=== PATIENT | female | born 1985 ===

== ENCOUNTER 2021-04-23 13:41 | Outpatient (REF) | payer BC, SELFPAY ==
--- NOTE | ~2021-04-23 | XR_ITS ---
EXAMINATION: XR ANKLE, RIGHT XR FOOT, RIGHT CLINICAL INFORMATION: M25.571 - Pain in right ankle and joints of right foot COMPARISON: None TECHNIQUE: 2 views right ankle and 2 views right ordered or obtained. A lateral view of the combined ankle and foot is also included for a total of 5 views. FINDINGS: There is no fracture or dislocation. The ankle mortise is symmetric. The malleoli are intact. There is mild soft tissue swelling overlying the lateral ankle just distal to the malleolus. Foot no fracture or dislocation. The retrocalcaneal recess. The talar dome appears normal. The subtalar joint is unremarkable. There is no focal joint narrowing or erosive change. There is bone union at the first MTP with mild hallux valgus. XR/XR foot RT min 3V IMPRESSION: 1. No fracture or dislocation ankle or foot. 2. First MTP bunion and hallux valgus.
--- NOTE | ~2021-04-23 | XR_ITS ---
EXAMINATION: XR ANKLE, RIGHT XR FOOT, RIGHT CLINICAL INFORMATION: M25.571 - Pain in right ankle and joints of right foot COMPARISON: None TECHNIQUE: 2 views right ankle and 2 views right ordered or obtained. A lateral view of the combined ankle and foot is also included for a total of 5 views. FINDINGS: There is no fracture or dislocation. The ankle mortise is symmetric. The malleoli are intact. There is mild soft tissue swelling overlying the lateral ankle just distal to the malleolus. Foot no fracture or dislocation. The retrocalcaneal recess. The talar dome appears normal. The subtalar joint is unremarkable. There is no focal joint narrowing or erosive change. There is bone union at the first MTP with mild hallux valgus. XR/XR ankle RT min 3V IMPRESSION: 1. No fracture or dislocation ankle or foot. 2. First MTP bunion and hallux valgus.
== END 2021-04-23 13:42 | disposition home or self-care (01) ==
LOC: HO.HMGCX 13:41
PROVIDERS: PCP Internal Medicine; Visit Provider Hospitalist
DX: M25.571 Pain in right ankle and joints of right foot (principal)
CPT/HCPCS: 73610; 73630

== ENCOUNTER 2022-07-09 17:58 | Outpatient (REF) | payer BC, SELFPAY ==
[2022-07-09 18:46] LABS: Influenza A PCR NEGATIVE (Negative); Influenza B PCR NEGATIVE (Negative); Resp Syncy Virus RNA Qual PCR POSITIVE (Negative); SARS COV2 PCR INHOUSE NEGATIVE (Negative)
== END 2022-07-09 17:59 | disposition home or self-care (01) ==
LOC: HO.LNP 17:58
PROVIDERS: Visit Provider Nurse Practitioner Family
DX: Z20.822 Contact with and (suspected) exposure to COVID-19 (principal); J06.9 Acute upper respiratory infection, unspecified
CPT/HCPCS: 0241U

== ENCOUNTER 2022-08-20 09:29 | Outpatient (REF) | payer BC, SELFPAY ==
[2022-08-20 14:47] LABS: Influenza A PCR NEGATIVE (Negative); Influenza B PCR NEGATIVE (Negative); Resp Syncy Virus RNA Qual PCR NEGATIVE (Negative); SARS COV2 PCR INHOUSE NEGATIVE (Negative)
== END 2022-08-20 09:30 | disposition home or self-care (01) ==
LOC: HO.LAB 09:29
PROVIDERS: Visit Provider Nurse Practitioner Family
DX: Z20.822 Contact with and (suspected) exposure to COVID-19 (principal); J06.9 Acute upper respiratory infection, unspecified
CPT/HCPCS: 0241U

== ENCOUNTER 2023-02-21 14:21 | Outpatient (REF) | payer BC, SELFPAY ==
[2023-02-22 05:11] LABS: CT PCR NOT DETECTED (Not Detect.); NG PCR NOT DETECTED (Not Detect.)
[2023-02-22 08:55] LABS: BV Int Neg Control Negative (Negative); BV Int Pos Control Positive (Positive)
[2023-02-24 00:03] LABS: HPV mRNA E6/E7 rflx Not Detected (Not Detected)
== END 2023-02-21 14:22 | disposition home or self-care (01) ==
LOC: HO.LNP 14:21
PROVIDERS: PCP Internal Medicine; Visit Provider Advanced Practice Midwife
DX: Z01.419 Encounter for gynecological examination (general) (routine) without abnormal findings (principal); Z11.51 Encounter for screening for human papillomavirus (HPV); R21 Rash and other nonspecific skin eruption; Z20.2 Contact with and (suspected) exposure to infections with a predominantly sexual mode of transmission
CPT/HCPCS: 0353U; 87480; 87510; 87624; 87660; 88142

== ENCOUNTER 2023-03-25 14:23 | Outpatient (REF) | payer BC, SELFPAY ==
[2023-03-25 14:41] LABS: MANUAL DIFF FLAG NO
[2023-03-25 17:34] LABS: Basophils Percent Auto 0.7 % (0-2); Eosinophils Absolute Auto 0.3 X10*3/uL (0.0-0.4); Eosinophils Percent Auto 4.7 % (0-4); Hematocrit 34.5 % (37.0-47.0); Hemoglobin 10.9 g/dl (12.0-16.0); Imm Gran Abs Auto 0.02 X10*3/uL (0.00-0.03); Imm Gran Pct Auto 0.3 % (0.0-0.4); Lymphocytes Absolute Auto 1.8 X10*3/uL (1.2-4.9); Lymphocytes Percent Auto 29.7 % (20-40); Mean Corpuscular HGB Conc 31.6 g/dl (31.0-35.0); Mean Corpuscular Hemoglobin 27.5 pg (27.0-33.0); Mean Corpuscular Volume 87.1 fL (80.0-98.0); Monocytes Absolute Auto 0.4 X10*3/uL (0.1-1.2); Monocytes Percent Auto 6.1 % (2-11); Neutrophils Absolute Auto 3.5 x10*3/uL (2.0-8.3); Neutrophils Percent Auto 58.5 % (45-73); Platelet Count 297 X10*3/uL (160-400); Red Blood Count 3.96 X10*6/uL (4.20-5.50); Red Cell Distribution Width 13.9 % (11.0-16.0); Retic HGB Equivalent 30.4 pg (30.0-35.0); Reticulocytes Absolute 0.041 X10*6/uL (0.026-0.095)
[2023-03-25 18:15] LABS: Alanine Aminotransferase 8 U/L (0-31); Albumin Level 4.1 g/dL (3.5-5.0); Alkaline Phosphatase 75 U/L (39-117); Anion Gap 14 (12-20); Aspartate Amino Transferase 12 U/L (5-31); Bilirubin Total 0.4 mg/dL (0.0-1.0); Blood Urea Nitrogen 8 mg/dL (9-16); Calcium 9.4 mg/dL (8.4-10.2); Carbon Dioxide 23 mmol/L (22-29); Chloride 106 mmol/L (96-108); Cholesterol 160 mg/dL; Estimated Glomerular Filt Rate > 60; Glucose Random 68 mg/dL (60-115); HDL Cholesterol 50 mg/dL; Iron 91 mcg/dL (30-160); LDL Cholesterol Calculated 100 mg/dl; Percent Iron Saturation 23 % (15-50); Potassium 3.9 mmol/L (3.3-5.1); Sodium 139 mmol/L (135-145); Total Iron Binding Capacity 391 mcg/dL (228-428); Total Protein 7.4 g/dL (6.5-8.0); Triglycerides 50 mg/dL; Unsaturated Iron Binding 300 ug/dL
[2023-03-25 18:34] LABS: Ferritin 9 ng/mL (10-122); Free T4 (Free Thyroxine) 0.89 ng/dL (0.71-1.85); Thyroid Stimulating Hormone 0.38 uIU/mL (0.32-4.0); Vitamin D 25-OH Total 37.1 ng/mL (>30)
== END 2023-03-25 14:24 | disposition home or self-care (01) ==
LOC: HO.LAB 14:23
PROVIDERS: PCP Internal Medicine; Visit Provider Internal Medicine
DX: K21.9 Gastro-esophageal reflux disease without esophagitis (principal); D64.9 Anemia, unspecified; E78.00 Pure hypercholesterolemia, unspecified; E55.9 Vitamin D deficiency, unspecified
CPT/HCPCS: 36415; 80053; 80061; 82306; 82607; 82728; 82746; 83540; 84439; 84443; 85025; 85045

== ENCOUNTER 2023-03-28 12:20 | Outpatient (AMB) | payer BC, SELFPAY ==
[2023-03-28 12:23] VITALS: BP 118/70; PULSE 80; O2SAT 98; BMI 30.8
--- NOTE | 2023-03-28 12:23 | MHC.PC.OV ---
Vital Signs 03/28/23 12:23 Height 5 ft 5 in Weight 185 lb BMI 30.8 BP 118/70 Blood Pressure Location Lt brachial Position Sitting Pulse 80 Pulse Source Pulse Oximeter Pulse Oximetry (%) 98 Oxygen Delivery Method Room Air Intake Visit Reasons: Annual Exam Allergies propranolol Allergy (Unknown, Verified 03/28/23 12:24) Unknown topiramate [Topamax] Allergy (Unknown, Verified 03/28/23 12:24) tingling sensation Medication List - Last Reconciled 03/28/23 by Marcial Carr MD albuterol sulfate 90 mcg/actuation 2 puffs PO QID PRN albuterol sulfate 2.5 mg (3 mL) inhalation QID PRN ascorbic acid (vitamin C) 500 mg PO .QD 90 days cetirizine (Zyrtec) 10 mg PO DAILY PRN cholecalciferol (vitamin D3) 50 mcg PO DAILY 90 days clotrimazole-betamethasone 1-0.05 % 1 appl topical BID 2 weeks doxepin 50 mg PO BEDTIME ferrous sulfate (Feosol) 325 mg PO DAILY fluoxetine 10 mg PO DAILY 90 days fluticasone propionate 50 mcg/actuation 2 sprays intranasal DAILY gabapentin 300 mg PO BEDTIME Tobacco use date assessed: 11/26/22 Dental Screening Dental Screen Date: 03/28/23 Did you have a dental visit in the last 12 months?: Yes Did you have a dental problem in the last 6 months where you did not have access to dental care?: No Was dental information given to patient?: Patient has dentist HPI Annual Exam HPI Details 38-year-old obese female with tension headache, generalized anxiety disorder GERD and asthma last seen in November 2022. Patient gets blood work from [facility] reference lab cholesterol is good thyroid is normal low vitamin-D anemia last blood work of December 2022 patient also sees gynecology February 2023 blood work recently done showing anemia at 10.9. occ lightheadenss,, dry cough, PFSH Medical History (Updated 03/28/23 @ 12:36 by Marcial Carr MD) Allergic rhinitis Anemia Asthma Cervical cancer screening Generalized anxiety disorder GERD (gastroesophageal reflux disease) Hyperthyroidism Hyperthyroidism Insomnia Iron deficiency anemia Migraine Nasal polyps Right carpal tunnel syndrome Well woman exam with routine gynecological exam Surgical History Hx of wisdom tooth extraction Family History Father Asthma Diabetes Mother Asthma Bipolar disorder Brother In good health Sister Down syndrome Other Substance use disorder Social History (Updated 03/28/23 @ 12:41 by Marcial Carr MD) Housing: Apartment Alcohol intake: never Patient Tobacco Use Status: Never used Tobacco Tobacco use type: Cigarette e-Cigarette/Vaping Use: Never Used Second Hand Smoke Exposure: No service: No Current occupational status: employed Cognitive needs: No Hearing needs: No Vision needs: No Female Reproductive History Menstrual Age of Menarche: 16 Questionnaire PHQ-9 Over the last 2 weeks, how often have you been bothered by any of the following problems? 1. Little interest or pleasure in doing things: not at all 2. Feeling down, depressed, or hopeless: not at all 3. Trouble falling or staying asleep, or sleeping too much: not at all 4. Feeling tired or having little energy: not at all 5. Poor appetite or overeating: not at all 6. Feeling bad about yourself - or that you are a failure or have let yourself or your family down: not at all 7. Trouble concentrating on things, such as reading the newspaper or watching television: not at all 8. Moving or speaking so slowly that other people could have noticed. Or the opposite - being so fidgety or restless that you have been moving around a lot more than usual: not at all 9. Thoughts that you would be better off or of hurting yourself in some way: not at all Total score: 0 Depression Screening Interpretation: Negative Source: Developed by Drs. Leo Maldonado, Cintia Wooten, Edilberto Araya and colleagues, with an educational gina from [employer]. Thrive Questionnaire Date Thrive assessed: 03/28/23 I am a: Patient What is your living situation today?: I have a steady place to live Within the past 12 months, did the food you bought not last and you didn't have the money to get more?: Never true Within the past 12 months, did you worry whether your food would run out before you got money to buy more?: Never true Do you have trouble paying for medicines?: No Do you have trouble getting transportation to medical appointments?: No Do you have trouble paying your heating and electricity bill?: No Do you have trouble taking care of your child, family member or friend?: No Do you have trouble with day-to-day activities such as bathing, preparing meals, shopping, managing finances, etc.?: No Are you currently unemployed and looking for a job?: No Are you interested in more education?: No Currently or been in a relationship where the following occur: no concerns reported AUDIT C Alcohol Use Questionnaire (AUDIT-C) 1. How often do you have a drink containing alcohol?: 2-4 times a month 2. How many drinks containing alcohol do you have on a typical day when you are drinking?: 1 or 2 3. How often do you have six or more drinks on one occasion?: Never Total Score: 2 SARA-7 AMB Questionnaire SARA-7 Date SARA - 7 assessed: 03/28/23 Feeling nervous, anxious, or on edge: 0 = Not at all Not being able to stop or control worryin = Not at all Worrying too much about different things: 0 = Not at all Trouble relaxin = Not at all Being so restless that it is hard to sit still: 0 = Not at all Becoming easily annoyed or irritable: 0 = Not at all Feeling afraid as if something awful might happen: 0 = Not at all Total SARA-7 score (0-4 normal; 5-9 mild; 10-14 moderate; 15-21 severe): 0 Source: Developed by Drs. Leo Maldonado, Cintia Wooten, Edilberto Araya and colleagues, with an educational gina from [employer]. Review of Systems Const Denies poor appetite and Denies weakness Eyes Denies no additional complaints ENT Reports Normal hearing present, Denies dizziness, Denies nasal congestion, Denies tinnitus and Denies sore throat Card Denies chest pain, Denies syncope, Denies rapid heart rate and Denies dyspnea Resp Denies cough and Denies dyspnea GI Denies change in stool character, Reports constipation, Denies diarrhea, Denies nausea and Denies vomiting Denies urinary frequency, Denies difficulty voiding and Denies dysuria Neuro Reports Normal hearing present, Denies confusion, Denies dizziness, Denies syncope and Denies weakness Psych Denies confusion Physical exam (Primary Care) Vital Signs: Last Vital Signs Pulse 80 03/28/23 12:23 BP 118/70 03/28/23 12:23 Pulse Ox 98 03/28/23 12:23 Oxygen Delivery Method Room Air 03/28/23 12:23 BMI result Body Mass Index 30.8 Tobacco/Smoking Status: Tobacco use Status Tobacco use date assessed 11/26/22 03/28/23 12:29 Patient Tobacco Use Status Never used Tobacco 03/28/23 12:29 Tobacco use type Cigarette 03/28/23 12:29 e-Cigarette/Vaping Use Never Used 03/28/23 12:29 PHQ-9: PHQ-9 Score PHQ-9: Total score 0 03/28/23 12:29 Depression Screening Interpretation: Negative Thrive Assessment: Date of Thrive Assessment Date Thrive assessed 03/28/23 03/28/23 12:29 Currently or been in a relationship where the following occur: no concerns reported Const General: No confusion Orientation/consciousness: No confusion HENMT Head: Yes normocephalic Ears: external ears normal and TM's normal bilaterally Face and sinus: Yes normal facial exam Mouth: moist mucous membranes Throat: Yes tonsils normal Eyes Conjunctivae: conjunctivae normal Pupils: Equal, round and reactive pupils present and Pupil accommodation reflex normal Direct Ophthalmoscopy: normal light reflex Neck Neck: No lymphadenopathy Thyroid: Thyroid normal Chest Chest palpation & inspection: normal inspection of the chest Resp Effort & Inspection: normal respiratory effort and no audible wheezes Auscultation: clear to auscultation bilaterally, no crackles, no wheezes and lung sounds not diminished Cardio Rate: regular rate Rhythm: regular rhythm Peripheral pulses: radial pulses present and dorsalis pedis present GI Palpation (GI): no masses Auscultation: normal bowel sounds and normoactive bowel sounds Rectal Exam - Female: deferred Skin General skin exam: no rashes or lesions noted Rashes: no rashes Neuro General: No confusion Cranial nerves: Yes Equal, round and reactive pupils present and Yes Normal hearing present Cognition (Neuro): normal cognition Gait exam (Neuro): Normal gait present Motor exam (neuro): 5/5 motor strength present throughout Deep tendon reflexes (DTR's): Right brachioradialis reflex intensity grade: 2+, Left brachioradialis reflex intensity grade: 2+, Right patellar reflex intensity grade: 2+ and Left patellar reflex intensity grade: 2+ Extrem General: No edema Assessment and Plan Assessment & Plan (1) Annual physical exam: Code(s): Z00.00 - Encounter for general adult medical examination without abnormal findings (2) Iron deficiency anemia: Code(s): D50.9 - Iron deficiency anemia, unspecified Plan: iron and vitamin c sent in (3) Generalized anxiety disorder: Comment: decline counselling for now Code(s): F41.1 - Generalized anxiety disorder Plan: Continue with therapy with fluoxetine (4) GERD (gastroesophageal reflux disease): Code(s): K21.9 - Gastro-esophageal reflux disease without esophagitis Plan: Avoid the foods that causes that usually spicy foods, tomato products, juices, coffee, soda and foods that your sensitive to. After eating do not lie down, allow 3-4 hours before in lie down. And keep the head of bed above 30 degrees to avoid the acid from going up. (5) Asthma: Code(s): J45.909 - Unspecified asthma, uncomplicated Plan: Continue with inhaler as needed Orders: Orders Complete Blood Count Auto Diff 4 Months D50.9 - Iron deficiency anemia, unspecified IRON PROFILE 4 Months D50.9 - Iron deficiency anemia, unspecified Reticulocyte Count 4 Months D50.9 - Iron deficiency anemia, unspecified Vitamin B12 and Folate 4 Months D50.9 - Iron deficiency anemia, unspecified Ferritin 4 Months D50.9 - Iron deficiency anemia, unspecified Medications: New sennosides-docusate sodium 8.6-50 mg (Senna-S) 2 tab-caps (2 x 8.6-50 mg) PO BEDTIME 60 tabs 3RF Coding Level of Care Code Est Pt Prev Care 18-39y([id number]) Diagnoses Annual physical exam Z00.00 Iron deficiency anemia D50.9 Generalized anxiety disorder F41.1 GERD (gastroesophageal reflux disease) K21.9 Asthma J45.909
== END 2023-03-28 13:08 | disposition home or self-care (01) ==
PROVIDERS: PCP Internal Medicine; Visit Provider Internal Medicine
DX: Z00.00 Encounter for general adult medical examination without abnormal findings (principal); K21.9 Gastro-esophageal reflux disease without esophagitis; J45.909 Unspecified asthma, uncomplicated; D50.9 Iron deficiency anemia, unspecified; F41.1 Generalized anxiety disorder
CPT/HCPCS: 99395

== ENCOUNTER 2023-06-03 10:19 | Outpatient (AMB) | payer BC, SELFPAY ==
[2023-06-03 10:26] VITALS: BP 102/70; PULSE 72; TEMP 36.3; O2SAT 96; BMI 30.8
--- NOTE | 2023-06-03 10:26 | MHC.OFFWIV ---
Intake Vital Signs 06/03/23 10:26 Height 5 ft 5 in Weight 83.971 kg BMI 30.8 BP 102/70 Blood Pressure Location Rt brachial Position Sitting Pulse 72 Pulse Source Pulse Oximeter Temp 97.3 F Temp Source Temporal Artery Scan Pulse Oximetry (%) 96 Oxygen Delivery Method Room Air Intake Visit Reasons: EP Asthma/Sinus infection/congestion (masked) Intake Note: Pt is here c/o asthma flare ups and chest congestion for the last 7 days. Patient Tobacco Use Status: Never used Tobacco Allergies propranolol Allergy (Unknown, Verified 06/03/23 10:26) Unknown topiramate [Topamax] Allergy (Unknown, Verified 06/03/23 10:26) tingling sensation Do you need a note to return to daycare/school/sports/work: No HPI HPI Comments History of Present Illness Details 1054 A 38 year old female hx of asthma, anemia, anxiety, GERD presents congestion, fatigue, malaise, facial/ sinus pressure X 1 week. A few sick contacts. PE- w/ discomfort w/ palpation of facial sinuses and pressure to face w/ forward bending Likely sinusitis vsupper respiratory infection versus asthma versus chronic lung disease. Unlikely PE (PERC negvative) , pneumonia, pneumothorax, respiratory distress Plan will give atbx, inhaler, prednisone. Educated patient on diagnosis and treatment plan, answered all question, patient verbalizes understanding. At this time patient will be discharged home, advised to return with new or worsening symptoms. Educated on worrisome signs and symptoms and when to return. At this time I feel comfortable discharge home. [facility] Medical History Cervical cancer screening Well woman exam with routine gynecological exam Anemia Hyperthyroidism Insomnia Generalized anxiety disorder Right carpal tunnel syndrome Nasal polyps Hyperthyroidism Migraine GERD (gastroesophageal reflux disease) Iron deficiency anemia Asthma Allergic rhinitis Surgical History Hx of wisdom tooth extraction Family History Father Asthma Diabetes Mother Asthma Bipolar disorder Brother In good health Sister Down syndrome Other Substance use disorder Social History Housing: Apartment Alcohol intake: never Patient Tobacco Use Status: Never used Tobacco Tobacco use type: Cigarette e-Cigarette/Vaping Use: Never Used Second Hand Smoke Exposure: No service: No Current occupational status: employed Cognitive needs: No Hearing needs: No Vision needs: No Female Reproductive History Menstrual Age of Menarche: 16 Review of Systems Const Details: Constitutional : No Weight loss, No Fever, No Chills, No Fatigue, No Malaise ENT/Mouth : No sore throat, No Rhinorrhea, + congestion Eyes: No Eye Pain, No Swelling, No Redness Cardiovascular : No Chest Pain, No SOB, No Dyspnea on Exertion, No Orthopnea, No Edema, No Palpitations Respiratory : No Cough, No Sputum, No Wheezing Gastrointestinal : No Nausea, No Vomiting, No Diarrhea, No Constipation, No abdominal Pain, No Hematochezia, No Melena Genitourinary : No Dysuria, No Urinary Frequency, No Hematuria, Musculoskeletal : No joint pain, No Myalgias, No Joint Swelling Skin : No Skin Lesions, No rash Neuro : No Weakness, No Numbness, No Dizziness, No Headache Psych : No Anxiety/Panic, No Depression All other systems reviewed and are negative All systems reviewed & are unremarkable except as noted in HPI and below Physical Exam Vital Signs: Last Vital Signs Temp 97.3 F 06/03/23 10:26 Pulse 72 06/03/23 10:26 BP 102/70 06/03/23 10:26 Pulse Ox 96 06/03/23 10:26 Oxygen Delivery Method Room Air 06/03/23 10:26 BMI result Body Mass Index 30.8 Vital signs stable Appearance: Alert.? Oriented X3.? No acute distress.? Head: Normocephalic, atraumatic, no step-offs or deformities w/ discomfort w/ palpation of facial sinuses and pressure to face w/ forward bending Eyes: Pupils equal, round and reactive to light.? CVS: Normal heart rate and rhythm.? Pulses normal.? Respiratory: No respiratory distress.? Breath sounds normal.? Abdomen: Soft and nontender.? Skin: Skin warm and dry.? Normal skin color.? Normal skin turgor.? Extremities: No lower extremity edema.? No calf ttp. 5/5 strength to bilateral upper and lower extremities Neuro: Oriented X 3.? No motor deficit.? No sensory deficit. CN 2-12 intact Assessment & Plan Assessment & Plan (1) Sinusitis: Code(s): J32.9 - Chronic sinusitis, unspecified Plan Take your medications as prescribed. If you were prescribed antibiotics today, it is important that you take your medication to their entirety, do not skip any doses, do not finish them early. Follow-up with your primary care provider this week. Return to the emergency department with new or worsening symptoms. Such as fevers, chills, chest pain, shortness of breath, nausea, vomiting, dizziness, headache, vision changes, lethargy In case of emergency call 911 Orders: Orders SARS-CoV2/FLU/RSV Today B34.9 - Viral infection, unspecified Medications: New prednisone 40 mg (2 x 20 mg) PO DAILY 5 days 10 tabs 0RF amoxicillin-pot clavulanate 875-125 mg 1 tab PO BID 10 days 20 tabs 0RF albuterol sulfate 90 mcg/actuation 2 puffs inhalation Q6H PRN 6.7 grams 0RF shortness of breath or wheezing Coding Level of Care Code Est Pt Level 3 (66732) Diagnoses Sinusitis J32.9
== END 2023-06-03 12:50 | disposition home or self-care (01) ==
PROVIDERS: PCP Internal Medicine; Visit Provider Physician Assistant
DX: J32.9 Chronic sinusitis, unspecified (principal)
CPT/HCPCS: 99213

== ENCOUNTER 2023-06-03 14:12 | Outpatient (REF) | payer BC, SELFPAY ==
[2023-06-03 15:09] LABS: Influenza A PCR NEGATIVE (Negative); Influenza B PCR NEGATIVE (Negative); Resp Syncy Virus RNA Qual PCR NEGATIVE (Negative); SARS COV2 PCR INHOUSE POSITIVE (Negative)
== END 2023-06-03 14:13 | disposition home or self-care (01) ==
LOC: HO.LNP 14:12
PROVIDERS: Visit Provider Physician Assistant
DX: Z20.822 Contact with and (suspected) exposure to COVID-19 (principal); B34.9 Viral infection, unspecified
CPT/HCPCS: 0241U

== ENCOUNTER 2023-10-07 16:45 | Outpatient (AMB) | payer OTHER, MEDICAID, SELFPAY ==
--- NOTE | 2023-10-07 16:41 | MHC.PC.OV ---
Intake Visit Reasons: 6ms F/U Anemia Process Safety Specialist Required: No Accompanied by: Self / Same As Patient Allergies propranolol Allergy (Unknown, Verified 10/07/23 16:42) Unknown topiramate [Topamax] Allergy (Unknown, Verified 10/07/23 16:42) tingling sensation Medication List - Last Reconciled 10/07/23 by Marcial Carr MD albuterol sulfate 2.5 mg (3 mL) inhalation QID PRN albuterol sulfate 90 mcg/actuation 2 puffs inhalation Q6H PRN cetirizine (Zyrtec) 10 mg PO DAILY PRN cholecalciferol (vitamin D3) 50 mcg PO DAILY 90 days clotrimazole-betamethasone 1-0.05 % 1 appl topical BID 2 weeks doxepin 50 mg PO BEDTIME fluoxetine 20 mg PO DAILY 90 days fluticasone propionate 50 mcg/actuation 2 sprays intranasal DAILY gabapentin 300 mg PO BEDTIME Tobacco use date assessed: 11/26/22 HPI 6ms F/U Anemia HPI Details 38-year-old obese female with a history of iron-deficiency anemia generalized anxiety disorder GERD asthma last seen in March 2023. Review of the notes had COVID-19 infection in 06/03/2023. Received in the notes also blood work that was done in September 2023 showing normal B12 normal sugar normal kidney function and liver function normal iron normal cholesterol with an LDL of 90 normal TSH low vitamin-D no anemia normal blood count and platelet count PFSH Medical History Cervical cancer screening Well woman exam with routine gynecological exam Anemia Hyperthyroidism Insomnia Generalized anxiety disorder Right carpal tunnel syndrome Nasal polyps Hyperthyroidism Migraine GERD (gastroesophageal reflux disease) Iron deficiency anemia Asthma Allergic rhinitis Surgical History Hx of wisdom tooth extraction Family History Father Asthma Diabetes Mother Asthma Bipolar disorder Brother In good health Sister Down syndrome Other Substance use disorder Social History Housing: Apartment Alcohol intake: never Patient Tobacco Use Status: Never used Tobacco Tobacco use type: Cigarette e-Cigarette/Vaping Use: Never Used Second Hand Smoke Exposure: No service: No Current occupational status: employed Cognitive needs: No Hearing needs: No Vision needs: No Female Reproductive History Menstrual Age of Menarche: 16 Questionnaire PHQ-9 Over the last 2 weeks, how often have you been bothered by any of the following problems? 1. Little interest or pleasure in doing things: not at all 2. Feeling down, depressed, or hopeless: not at all 3. Trouble falling or staying asleep, or sleeping too much: not at all 4. Feeling tired or having little energy: not at all 5. Poor appetite or overeating: not at all 6. Feeling bad about yourself - or that you are a failure or have let yourself or your family down: not at all 7. Trouble concentrating on things, such as reading the newspaper or watching television: not at all 8. Moving or speaking so slowly that other people could have noticed. Or the opposite - being so fidgety or restless that you have been moving around a lot more than usual: not at all 9. Thoughts that you would be better off or of hurting yourself in some way: not at all Total score: 0 Depression Screening Interpretation: Negative Depression Screening Done: Yes 25982 - PHQ-9 Billing: Yes Source: Developed by Drs. Leo Maldonado, Cintia Wooten, Edilberto Araya and colleagues, with an educational gina from [employer]. Thrive Questionnaire Date Thrive assessed: 10/07/23 I am a: Patient What is your living situation today?: I have a steady place to live Within the past 12 months, did the food you bought not last and you didn't have the money to get more?: Never true Within the past 12 months, did you worry whether your food would run out before you got money to buy more?: Never true Do you have trouble paying for medicines?: No Do you have trouble getting transportation to medical appointments?: No Do you have trouble paying your heating and electricity bill?: No Do you have trouble taking care of your child, family member or friend?: No Do you have trouble with day-to-day activities such as bathing, preparing meals, shopping, managing finances, etc.?: No Are you currently unemployed and looking for a job?: No Are you interested in more education?: No Please select the resources that you would like help with: None Currently or been in a relationship where the following occur: no concerns reported THRIVE Score: 0 AUDIT C Alcohol Use Questionnaire (AUDIT-C) 1. How often do you have a drink containing alcohol?: Monthly or less 2. How many drinks containing alcohol do you have on a typical day when you are drinking?: 1 or 2 3. How often do you have six or more drinks on one occasion?: Never Total Score: 1 SARA-7 AMB Questionnaire SARA-7 Date SARA - 7 assessed: 10/07/23 Feeling nervous, anxious, or on edge: 0 = Not at all Not being able to stop or control worryin = Not at all Worrying too much about different things: 0 = Not at all Trouble relaxin = Not at all Being so restless that it is hard to sit still: 0 = Not at all Becoming easily annoyed or irritable: 0 = Not at all Feeling afraid as if something awful might happen: 0 = Not at all Total SARA-7 score (0-4 normal; 5-9 mild; 10-14 moderate; 15-21 severe): 0 Source: Developed by Drs. Leo Maldonado, Cintia Wooten, Edilberto Araya and colleagues, with an educational gina from [employer]. SARA-7 Assessment Billing SARA-7 Assessment Tool: SARA-7 Assessment 33352 Physical exam (Primary Care) Tobacco/Smoking Status: Tobacco use Status Tobacco use date assessed 11/26/22 10/07/23 16:44 Patient Tobacco Use Status Never used Tobacco 10/07/23 16:44 Tobacco use type Cigarette 10/07/23 16:44 e-Cigarette/Vaping Use Never Used 10/07/23 16:44 PHQ-9: PHQ-9 Score PHQ-9: Total score 0 10/07/23 16:44 Depression Screening Interpretation: Negative Thrive Assessment: Date of Thrive Assessment Date Thrive assessed 10/07/23 10/07/23 16:44 Currently or been in a relationship where the following occur: no concerns reported Telehealth Telehealth Location of provider rendering services: practice address Location of patient: address on file Patient Identification confirmed using: Name, : Yes Telehealth method: voice only Patient verbally consented to treatment: Yes Patient verbally consented to billing insurance company: Yes Patient informed of any privacy concerns related to visit: Yes Assessment and Plan Assessment & Plan (1) Iron deficiency anemia: Code(s): D50.9 - Iron deficiency anemia, unspecified Plan: Resolved (2) Generalized anxiety disorder: Comment: decline counselling for now Code(s): F41.1 - Generalized anxiety disorder Plan: Continue with present medication (3) GERD (gastroesophageal reflux disease): Code(s): K21.9 - Gastro-esophageal reflux disease without esophagitis Plan: Avoid the foods that causes that usually spicy foods, tomato products, juices, coffee, soda and foods that your sensitive to. After eating do not lie down, allow 3-4 hours before in lie down. And keep the head of bed above 30 degrees to avoid the acid from going up. (4) Asthma: Code(s): J45.909 - Unspecified asthma, uncomplicated Plan: Continue with the inhaler as needed. Controlled and use as needed only (5) COVID-19 virus infection: Comment: June 03, 2023 Code(s): U07.1 - COVID-19 Plan: Resolved (6) Vitamin D deficiency: Code(s): E55.9 - Vitamin D deficiency, unspecified Plan: Continue with the present vitamin-D Coding Level of Care Code Est Pt Level 4 (94424) Diagnoses Iron deficiency anemia D50.9 Generalized anxiety disorder F41.1 GERD (gastroesophageal reflux disease) K21.9 Asthma J45.909 COVID-19 virus infection U07.1 Vitamin D deficiency E55.9 Additional Codes SARA-7 Assessment Billing - SARA-7 Assessment Tool: SARA-7 Assessment [id number] ([id number])
== END 2023-10-07 17:36 | disposition home or self-care (01) ==
LOC: HO.HMGH 16:45
PROVIDERS: PCP Internal Medicine; Visit Provider Internal Medicine
DX: F41.1 Generalized anxiety disorder (principal); K21.9 Gastro-esophageal reflux disease without esophagitis; J45.909 Unspecified asthma, uncomplicated; E55.9 Vitamin D deficiency, unspecified
CPT/HCPCS: 99214

== ENCOUNTER 2024-03-30 13:09 | Outpatient (AMB) | payer OTHER, MEDICAID, SELFPAY ==
[2024-03-30 13:20] VITALS: BP 114/68; PULSE 75; O2SAT 98; BMI 30.3
--- NOTE | 2024-03-30 13:20 | MHC.PC.OV ---
Vital Signs 03/30/24 13:20 Height 5 ft 5 in Weight 182 lb BMI 30.3 BP 114/68 Blood Pressure Location Lt brachial Position Sitting Pulse 75 Pulse Source Pulse Oximeter Pulse Oximetry (%) 98 Oxygen Delivery Method Room Air Intake Visit Reasons: PE Intake Note: Requesting referral for ENT. Allergies propranolol Allergy (Unknown, Verified 03/30/24 13:21) Unknown topiramate [Topamax] Allergy (Unknown, Verified 03/30/24 13:21) tingling sensation Medication List - Last Reconciled 03/30/24 by Marcial Carr MD albuterol sulfate 2.5 mg (3 mL) inhalation QID PRN albuterol sulfate 90 mcg/actuation 2 puffs inhalation Q6H PRN cetirizine (Zyrtec) 10 mg PO DAILY PRN clotrimazole-betamethasone 1-0.05 % 1 appl topical BID 2 weeks doxepin 50 mg PO BEDTIME fluoxetine 20 mg PO DAILY 90 days fluticasone propionate 50 mcg/actuation 2 sprays intranasal DAILY gabapentin 300 mg PO BEDTIME Tobacco use date assessed: 03/30/24 Dental Screening Dental Screen Date: 03/28/23 HPI PE HPI Details 39-year-old obese female with iron deficiency anemia generalized anxiety disorder GERD asthma coming in for physical exam last seen in September 2023. Patient is up-to-date with Pap smear. urgent center infection of ears. was told recurent infection and was advised ENT- [address] [facility] Medical History Cervical cancer screening Well woman exam with routine gynecological exam Anemia Hyperthyroidism Insomnia Generalized anxiety disorder Right carpal tunnel syndrome Nasal polyps Hyperthyroidism Migraine GERD (gastroesophageal reflux disease) Iron deficiency anemia Asthma Allergic rhinitis Surgical History Hx of wisdom tooth extraction Family History Father Asthma Diabetes Mother Asthma Bipolar disorder Brother In good health Sister Down syndrome Other Substance use disorder Social History Housing: Apartment Alcohol intake: never Patient Tobacco Use Status: Never used Tobacco Tobacco use type: Cigarette e-Cigarette/Vaping Use: Never Used Second Hand Smoke Exposure: No service: No Current occupational status: employed Cognitive needs: No Hearing needs: No Vision needs: No Female Reproductive History Menstrual Age of Menarche: 16 Questionnaire PHQ-9 Over the last 2 weeks, how often have you been bothered by any of the following problems? 1. Little interest or pleasure in doing things: not at all 2. Feeling down, depressed, or hopeless: not at all 3. Trouble falling or staying asleep, or sleeping too much: not at all 4. Feeling tired or having little energy: not at all 5. Poor appetite or overeating: not at all 6. Feeling bad about yourself - or that you are a failure or have let yourself or your family down: not at all 7. Trouble concentrating on things, such as reading the newspaper or watching television: not at all 8. Moving or speaking so slowly that other people could have noticed. Or the opposite - being so fidgety or restless that you have been moving around a lot more than usual: not at all 9. Thoughts that you would be better off or of hurting yourself in some way: not at all Total score: 0 Depression Screening Interpretation: Negative Depression Screening Done: Yes 84704 - PHQ-9 Billing: Yes Source: Developed by Drs. Leo Maldonado, Cintia Wooten, Edilberto Araya and colleagues, with an educational gina from [employer]. Thrive Questionnaire Date Thrive assessed: 10/07/23 AUDIT C Alcohol Use Questionnaire (AUDIT-C) 1. How often do you have a drink containing alcohol?: Monthly or less 2. How many drinks containing alcohol do you have on a typical day when you are drinking?: 1 or 2 3. How often do you have six or more drinks on one occasion?: Never Total Score: 1 SRAA-7 AMB Questionnaire SARA-7 Date SARA - 7 assessed: 10/07/23 Source: Developed by Drs. Leo Maldonado, Edilberto Pfeiffer and colleagues, with an educational gina from [employer]. Review of Systems Const Denies poor appetite and Denies weakness Eyes Denies no additional complaints ENT Reports Normal hearing present, Denies dizziness, Denies nasal congestion, Denies tinnitus and Denies sore throat Card Denies chest pain, Denies syncope, Denies rapid heart rate and Denies dyspnea Resp Denies cough and Denies dyspnea GI Denies change in stool character, Reports constipation, Denies diarrhea, Denies nausea and Denies vomiting Denies urinary frequency, Denies difficulty voiding and Denies dysuria Neuro Reports Normal hearing present, Denies confusion, Denies dizziness, Denies syncope and Denies weakness Psych Denies confusion Physical exam (Primary Care) Vital Signs: Last Vital Signs Pulse 75 03/30/24 13:20 BP 114/68 03/30/24 13:20 Pulse Ox 98 03/30/24 13:20 Oxygen Delivery Method Room Air 03/30/24 13:20 BMI result Body Mass Index 30.3 Tobacco/Smoking Status: Tobacco use Status Tobacco use date assessed 03/30/24 03/30/24 13:26 Patient Tobacco Use Status Never used Tobacco 03/30/24 13:26 Tobacco use type Cigarette 03/30/24 13:26 e-Cigarette/Vaping Use Never Used 03/30/24 13:26 PHQ-9: PHQ-9 Score PHQ-9: Total score 0 03/30/24 13:26 Depression Screening Interpretation: Negative Thrive Assessment: Date of Thrive Assessment Date Thrive assessed 10/07/23 03/30/24 13:26 Const General: No confusion Orientation/consciousness: No confusion HENMT Head: Yes normocephalic Ears: external ears normal and TM's normal bilaterally Face and sinus: Yes normal facial exam Mouth: moist mucous membranes Throat: Yes tonsils normal Eyes Conjunctivae: conjunctivae normal Pupils: Equal, round and reactive pupils present and Pupil accommodation reflex normal Direct Ophthalmoscopy: normal light reflex Neck Neck: No lymphadenopathy Thyroid: Thyroid normal Chest Chest palpation & inspection: normal inspection of the chest Resp Effort & Inspection: normal respiratory effort and no audible wheezes Auscultation: clear to auscultation bilaterally, no crackles, no wheezes and lung sounds not diminished Cardio Rate: regular rate Rhythm: regular rhythm Peripheral pulses: radial pulses present and dorsalis pedis present GI Palpation (GI): no masses Auscultation: normal bowel sounds and normoactive bowel sounds Rectal Exam - Female: deferred Skin General skin exam: no rashes or lesions noted Rashes: no rashes Neuro General: No confusion Cranial nerves: Yes Equal, round and reactive pupils present and Yes Normal hearing present Cognition (Neuro): normal cognition Gait exam (Neuro): Normal gait present Motor exam (neuro): 5/5 motor strength present throughout Deep tendon reflexes (DTR's): Right brachioradialis reflex intensity grade: 2+, Left brachioradialis reflex intensity grade: 2+, Right patellar reflex intensity grade: 2+ and Left patellar reflex intensity grade: 2+ Extrem General: No edema Assessment and Plan Assessment & Plan (1) Annual physical exam: Code(s): Z00.00 - Encounter for general adult medical examination without abnormal findings Plan: Patient is advised to eat healthy, keep well hydrated, keep active and have adequate sleep. (2) Iron deficiency anemia: Code(s): D50.9 - Iron deficiency anemia, unspecified Plan: Discussed importance of taking iron with vitamin-C for anemia. Will need retesting (3) Generalized anxiety disorder: Comment: decline counselling for now Code(s): F41.1 - Generalized anxiety disorder Plan: Continue with present medication of fluoxetine gabapentin (4) GERD (gastroesophageal reflux disease): Code(s): K21.9 - Gastro-esophageal reflux disease without esophagitis Plan: Avoid the foods that causes that usually spicy foods, tomato products, juices, coffee, soda and foods that your sensitive to. After eating do not lie down, allow 3-4 hours before in lie down. And keep the head of bed above 30 degrees to avoid the acid from going up. (5) Asthma: Code(s): J45.909 - Unspecified asthma, uncomplicated Plan: Continue with albuterol as needed (6) History of recurrent ear infection: Code(s): Z86.69 - Personal history of other diseases of the nervous system and sense organs Orders: Orders Complete Blood Count Auto Diff Today D50.9 - Iron deficiency anemia, unspecified Ferritin Today D50.9 - Iron deficiency anemia, unspecified Reticulocyte Count Today D50.9 - Iron deficiency anemia, unspecified Free T4 (Free Thyroxine) Today D50.9 - Iron deficiency anemia, unspecified Hemoglobin A1c Today D50.9 - Iron deficiency anemia, unspecified IRON PROFILE Today D50.9 - Iron deficiency anemia, unspecified Thyroid Stimulating Hormone Today D50.9 - Iron deficiency anemia, unspecified Vitamin B12 and Folate Today D50.9 - Iron deficiency anemia, unspecified Comprehensive Met. Panel Today D50.9 - Iron deficiency anemia, unspecified Referrals Ear/Nose/Throat Referral Z86.69 - Personal history of other diseases of the nervous system and sense organs Coding Level of Care Code Est Pt Prev Care 18-39y([id number]) Diagnoses Annual physical exam Z00.00 Iron deficiency anemia D50.9 Generalized anxiety disorder F41.1 GERD (gastroesophageal reflux disease) K21.9 Asthma J45.909 History of recurrent ear infection Z86.69
== END 2024-03-30 14:07 | disposition home or self-care (01) ==
PROVIDERS: PCP Internal Medicine; Visit Provider Internal Medicine
DX: Z00.00 Encounter for general adult medical examination without abnormal findings (principal); D50.9 Iron deficiency anemia, unspecified; F41.1 Generalized anxiety disorder; K21.9 Gastro-esophageal reflux disease without esophagitis; J45.909 Unspecified asthma, uncomplicated; Z86.69 Personal history of other diseases of the nervous system and sense organs
CPT/HCPCS: 99395

== ENCOUNTER 2025-04-02 13:11 | Outpatient (AMB) | payer BC, MEDICAID, SELFPAY ==
--- NOTE | 2025-04-02 13:15 | MHC.PC.OV ---
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 Accompanied by: Self / Same As Patient Allergies propranolol Allergy (Unknown, Verified 04/02/25 13:21) Unknown topiramate (Topamax) Allergy (Unknown, Verified 04/02/25 13:21) tingling sensation Medication List - Last Reconciled 04/02/25 by Marcial Carr MD albuterol sulfate 2.5 mg (3 mL) inhalation QID PRN albuterol sulfate 90 mcg/actuation 2 puffs inhalation Q6H PRN cetirizine (Zyrtec) 10 mg PO DAILY PRN clotrimazole-betamethasone 1-0.05 % 1 appl topical BID 2 weeks doxepin 50 mg PO BEDTIME fluoxetine 20 mg PO DAILY 90 days fluticasone propionate 50 mcg/actuation 2 sprays intranasal DAILY gabapentin 300 mg PO BEDTIME Tobacco use date assessed: 04/02/25 Dental Screening Dental Screen Date: 04/02/25 Did you have a dental visit in the last 12 months?: Yes Did you have a dental problem in the last 6 months where you did not have access to dental care?: No Was dental information given to patient?: Patient has dentist HPI Annual Exam HPI Details LMP Felicia first week [employer] first week january 5-7 days PFS Medical History (Updated 04/02/25 @ 13:36 by Marcial Carr MD) Cervical cancer screening Well woman exam with routine gynecological exam Anemia Hyperthyroidism Insomnia Generalized anxiety disorder Right carpal tunnel syndrome Nasal polyps Hyperthyroidism Migraine GERD (gastroesophageal reflux disease) Iron deficiency anemia Asthma Allergic rhinitis Surgical History Hx of wisdom tooth extraction Family History (Updated 04/02/25 @ 13:32 by Marcial Carr MD) Father Asthma Diabetes Mother Asthma Bipolar disorder Brother In good health Sister Down syndrome Maternal Aunt Heart attack Other Substance use disorder Social History (Updated 04/02/25 @ 13:33 by Marcial Carr MD) Housing: Apartment Alcohol intake: current Comment: 3-4 x a months 2 drinks Patient Tobacco Use Status: Never used Tobacco e-Cigarette/Vaping Use: Never Used Second Hand Smoke Exposure: No service: No Current occupational status: employed Current occupational exposures/hazards: No Cognitive needs: No Hearing needs: No Vision needs: No Female Reproductive History Menstrual Age of Menarche: 16 Questionnaire PHQ-9 Over the last 2 weeks, how often have you been bothered by any of the following problems? 1. Little interest or pleasure in doing things: several days 2. Feeling down, depressed, or hopeless: several days 3. Trouble falling or staying asleep, or sleeping too much: several days 4. Feeling tired or having little energy: nearly every day 5. Poor appetite or overeating: nearly every day 6. Feeling bad about yourself - or that you are a failure or have let yourself or your family down: several days 7. Trouble concentrating on things, such as reading the newspaper or watching television: nearly every day 8. Moving or speaking so slowly that other people could have noticed. Or the opposite - being so fidgety or restless that you have been moving around a lot more than usual: more than half the days 9. Thoughts that you would be better off or of hurting yourself in some way: not at all Total score: 15 Depression Screening Interpretation: Positive Depression Screening Done: Yes Source: Developed by Drs. Leo Maldonado, Cintia Wooten, Edilberto Araya and colleagues, with an educational gina from [employer]. Thrive Questionnaire Date Thrive assessed: 04/02/25 I am a: Patient What is your living situation today?: I have a steady place to live Within the past 12 months, did the food you bought not last and you didn't have the money to get more?: Never true Within the past 12 months, did you worry whether your food would run out before you got money to buy more?: Never true Do you have trouble paying for medicines?: No Do you have trouble getting transportation to medical appointments?: No Do you have trouble paying your heating and electricity bill?: Yes Do you have trouble taking care of your child, family member or friend?: No Do you have trouble with day-to-day activities such as bathing, preparing meals, shopping, managing finances, etc.?: No Are you currently unemployed and looking for a job?: No Are you interested in more education?: No Please select the resources that you would like help with: None Currently or been in a relationship where the following occur: No concerns reported THRIVE Score: 1 AUDIT C Alcohol Use Questionnaire (AUDIT-C) 1. How often do you have a drink containing alcohol?: 2-4 times a month 2. How many drinks containing alcohol do you have on a typical day when you are drinking?: 3 or 4 3. How often do you have six or more drinks on one occasion?: Never Total Score: 3 SARA-7 AMB Questionnaire SARA-7 Date SARA - 7 assessed: 04/02/25 Feeling nervous, anxious, or on edge: 3 = Nearly every day Not being able to stop or control worryin = More than half the days Worrying too much about different things: 1 = Several days Trouble relaxin = Several days Being so restless that it is hard to sit still: 0 = Not at all Becoming easily annoyed or irritable: 1 = Several days Feeling afraid as if something awful might happen: 0 = Not at all Total SARA-7 score (0-4 normal; 5-9 mild; 10-14 moderate; 15-21 severe): 8 Source: Developed by Drs. Leo Maldonado, Cintia Wooten, Edilberto Araya and colleagues, with an educational gina from [employer]. Review of Systems Const Denies poor appetite and Denies weakness Eyes Denies no additional complaints ENT Reports Normal hearing present, Denies dizziness, Denies nasal congestion, Denies tinnitus and Denies sore throat Card Denies chest pain, Denies syncope, Denies rapid heart rate and Denies dyspnea Resp Denies cough and Denies dyspnea GI Denies change in stool character, Reports constipation, Denies diarrhea, Denies nausea and Denies vomiting Denies urinary frequency, Denies difficulty voiding and Denies dysuria Neuro Reports Normal hearing present, Denies confusion, Denies dizziness, Denies syncope and Denies weakness Psych Denies confusion Physical exam (Primary Care) Vital Signs: Last Vital Signs BP 118/80 04/02/25 13:16 BMI result Body Mass Index 30.6 Tobacco/Smoking Status: Tobacco use Status Tobacco use date assessed 04/02/25 04/02/25 13:23 Patient Tobacco Use Status Never used Tobacco 04/02/25 13:23 Tobacco use type 04/02/25 13:23 e-Cigarette/Vaping Use Never Used 04/02/25 13:23 PHQ-9: PHQ-9 Score PHQ-9: Total score 04/02/25 13:23 Depression Screening Interpretation: Positive Thrive Assessment: Date of Thrive Assessment Date Thrive assessed 04/02/25 04/02/25 13:23 Currently or been in a relationship where the following occur: No concerns reported Const General: No confusion Orientation/consciousness: No confusion HENMT Head: Yes normocephalic Ears: external ears normal and TM's normal bilaterally Face and sinus: Yes normal facial exam Mouth: moist mucous membranes Throat: Yes tonsils normal Eyes Conjunctivae: conjunctivae normal Pupils: Equal, round and reactive pupils present and Pupil accommodation reflex normal Direct Ophthalmoscopy: normal light reflex Neck Neck: No lymphadenopathy Thyroid: Thyroid normal Chest Chest palpation & inspection: normal inspection of the chest Resp Effort & Inspection: normal respiratory effort and no audible wheezes Auscultation: clear to auscultation bilaterally, no crackles, no wheezes and lung sounds not diminished Cardio Rate: regular rate Rhythm: regular rhythm Peripheral pulses: radial pulses present and dorsalis pedis present GI Palpation (GI): no masses Auscultation: normal bowel sounds and normoactive bowel sounds Rectal Exam - Female: deferred Skin General skin exam: no rashes or lesions noted Rashes: no rashes Neuro General: No confusion Cranial nerves: Yes Equal, round and reactive pupils present and Yes Normal hearing present Cognition (Neuro): normal cognition Gait exam (Neuro): Normal gait present Motor exam (neuro): 5/5 motor strength present throughout Deep tendon reflexes (DTR's): Right brachioradialis reflex intensity grade: 2+, Left brachioradialis reflex intensity grade: 2+, Right patellar reflex intensity grade: 2+ and Left patellar reflex intensity grade: 2+ Extrem General: No edema Coding Level of Care Code Est Pt Prev Care 18-39y([id number]) Diagnoses Annual physical exam Z00.00 Asthma J45.909 GERD (gastroesophageal reflux disease) K21.9 Generalized anxiety disorder F41.1 Dysphagia R13.10 Frequency of micturition R35.0 Assessment & Plan Assessment & Plan (1) Annual physical exam: Code(s): Z00.00 - Encounter for general adult medical examination without abnormal findings Category: Medical Plan: Patient is advised to eat healthy, keep well hydrated, keep active and have adequate sleep. (2) Asthma: Code(s): J45.909 - Unspecified asthma, uncomplicated Category: Medical Plan: Patient on albuterol inhaler (3) GERD (gastroesophageal reflux disease): Code(s): K21.9 - Gastro-esophageal reflux disease without esophagitis Category: Medical Plan: Avoid the foods that causes that usually spicy foods, tomato products, juices, coffee, soda and foods that your sensitive to. After eating do not lie down, allow 3-4 hours before in lie down. And keep the head of bed above 30 degrees to avoid the acid from going up. (4) Generalized anxiety disorder: Comment: decline counselling for now Code(s): F41.1 - Generalized anxiety disorder Category: Medical Plan: Continue with present medication (5) Dysphagia: Code(s): R13.10 - Dysphagia, unspecified Category: Medical (6) Frequency of micturition: Code(s): R35.0 - Frequency of micturition Category: Medical Plan History of Present Illness The patient is a 40-year-old female presenting for an annual physical examination and management of chronic conditions. The patient has a history of asthma, managed with an albuterol inhaler used as needed, particularly in humid conditions. She reports no recent exacerbations requiring increased use of her inhaler. The patient has been diagnosed with gastroesophageal reflux disease (GERD) and experiences dysphagia, with food feeling stuck in her throat several times a week. She manages this by taking smaller bites and drinking water to aid swallowing. The patient has generalized anxiety disorder, for which she is prescribed fluoxetine 20 mg daily. She also takes doxepin to aid with sleep, which has been reduced from 100 mg to 50 mg due to urinary side effects. The patient has a history of iron deficiency anemia, which was noted in March 2023 blood work but resolved by September 2023. Her recent blood work showed normal B12, renal function, and electrolytes, but mildly low vitamin D levels. The patient reports symptoms of overactive bladder, including frequent urination and urge incontinence, which she attributes to medication side effects and childbirth. A urinalysis and bladder ultrasound have been planned to further investigate these symptoms. The patient experiences migraines for which she is prescribed gabapentin, and she reports some swelling in her hands and feet, possibly related to this medication. The gabapentin dosage was previously reduced from 300 mg to 50 mg to manage these side effects. The patient denies any new diagnoses or surgeries since her last visit and reports regular gynecological follow-ups. Health Maintenance - Regular gynecological follow-up - Tetanus and pneumonia vaccinations up to date - Blood work planned for thyroid and iron levels - Urinalysis and bladder ultrasound scheduled Social History - Alcohol consumption: Drinks 3-4 times a month, typically two margaritas per occasion - Tobacco use: Denies smoking - Family: Mother of four children, eldest is 19 years old and in the [employer] - Physical activity: Engages in activities with children, including swimming and soccer Review of Systems - General: Denies fever, chills, or night sweats - Cardiovascular: Denies chest pain or palpitations - Respiratory: Reports dyspnea in humid conditions, denies cough or wheezing - Gastrointestinal: Reports dysphagia, denies heartburn - Genitourinary: Reports frequent urination and urge incontinence - Neurological: Reports migraines, denies dizziness or syncope - Musculoskeletal: Reports swelling in hands and feet Physical Exam General: Cooperative, healthy appearing, comfortable, no acute distress and well developed Orientation: Patient oriented x3 Limitations: No limitations Head: Normal to inspection Ears: Hearing grossly normal bilaterally Nose: Normal external nose present Face and sinus: Normal facial exam Eyes: Appearance normal, both eyes and all related structures Neck: Normal visual inspection and Yes full ROM Respiratory: Normal respiratory effort and able to speak in complete sentences. Clear to auscultation bilaterally Cardiovascular: Regular rate and rhythm. Normal S1 and S2 GI: Normal to inspection. Soft to palpation and nontender Skin: No rashes or lesions noted Neuro: Patient oriented x3 Extremities: Normal to inspection, but patient reports swelling and soreness in hands and feet, possibly due to water retention or medication side effects. Results - Labs: Normal B12, renal function, electrolytes; mildly low vitamin D - Labs: Resolved iron deficiency anemia as of September 2023 Plan The patient will continue using the albuterol inhaler as needed for asthma management, particularly in humid conditions. For gastroesophageal reflux disease, the patient is advised to continue managing dysphagia by taking smaller bites and drinking water during meals. The patient's generalized anxiety disorder will continue to be managed with fluoxetine 20 mg daily, and doxepin dosage has been adjusted to 50 mg to minimize urinary side effects. A urinalysis and bladder ultrasound are scheduled to further evaluate symptoms of overactive bladder. For migraine management, the patient will continue with gabapentin, and the dosage has been reduced to manage swelling side effects. Blood work is planned to monitor thyroid and iron levels, and the patient is advised to maintain regular gynecological follow-ups. Patient was informed and verbally consented to the use of an ambient scribe for clinic note documentation during this visit. Discussion Notes During the visit, I discussed with the patient the management of her asthma, advising continued use of the albuterol inhaler as needed, especially in humid conditions. We reviewed her gastroesophageal reflux disease management, emphasizing the importance of taking smaller bites and drinking water to alleviate dysphagia. I explained the adjustment of doxepin dosage to address urinary side effects and scheduled a urinalysis and bladder ultrasound to further investigate her overactive bladder symptoms. We also discussed the continuation of gabapentin for migraine management, with a reduced dosage to mitigate swelling. The patient was informed about the planned blood work to monitor thyroid and iron levels, and the importance of maintaining regular gynecological follow-ups was reiterated. Patient Instructions - Continue using albuterol inhaler as needed, especially in humid conditions. - Manage dysphagia by taking smaller bites and drinking water during meals. - Continue fluoxetine 20 mg daily for anxiety management. - Follow up with scheduled urinalysis and bladder ultrasound. - Continue gabapentin for migraines, noting any swelling. - Schedule and complete blood work for thyroid and iron levels. - Maintain regular gynecological follow-ups. Orders: Orders FL barium swallow Today R13.10 - Dysphagia, unspecified FL upper GI series Today R13.10 - Dysphagia, unspecified Hemoglobin A1c Today K21.9 - Gastro-esophageal reflux disease without esophagitis Vitamin D 25-OH Total Today K21.9 - Gastro-esophageal reflux disease without esophagitis UA CC w/rflx Micro + Cult Today R30.0 - Dysuria, R35.0 - Frequency of micturition US bladder Today R35.0 - Frequency of micturition Complete Blood Count Auto Diff Today K21.9 - Gastro-esophageal reflux disease without esophagitis Comprehensive Met. Panel Today K21.9 - Gastro-esophageal reflux disease without esophagitis Free T4 (Free Thyroxine) Today K21.9 - Gastro-esophageal reflux disease without esophagitis Thyroid Stimulating Hormone Today K21.9 - Gastro-esophageal reflux disease without esophagitis Ferritin Today K21.9 - Gastro-esophageal reflux disease without esophagitis Reticulocyte Count Today K21.9 - Gastro-esophageal reflux disease without esophagitis IRON PROFILE Today K21.9 - Gastro-esophageal reflux disease without esophagitis Lipid Panel Today E78.00 - Pure hypercholesterolemia, unspecified, K21.9 - Gastro-esophageal reflux disease without esophagitis Vitamin B12 and Folate Today K21.9 - Gastro-esophageal reflux disease without esophagitis Medications: Refilled albuterol sulfate 90 mcg/actuation 2 puffs inhalation Q6H PRN 6.7 grams 0RF shortness of breath or wheezing fluoxetine 20 mg PO DAILY 90 caps 0RF 90 days F41.1 - Generalized anxiety disorder
[2025-04-02 13:16] VITALS: BP 118/80; BMI 30.6
--- OUTSIDE RECORDS SUMMARY | 2025-04-02 14:33 | XMS_ITS | Clinical Summary ---
Author Organization [facility] ity Address [address] [place] [address] Care Team Providers Care Handcrew Foreman Name Role Phone Unavailable Primary Care Provider Unavailabl e Social History Tobacco Use Types Packs/Day Years Used Date Smoking Tobacco: Never Assessed Comments Unknown Sex and Gender Information Value Date Recorded Sex Assigned at Not on file Legal Sex Female 4:46 PM EST Gender Identity Not on file Sexual Orientation Not on file Plan of Treatment Health Maintenance Due Date Last Done Comments DTaP,Tdap,and Td Vaccines (1 - Tdap) 2006 Hepatitis B Vaccines (1 of 3 - 19+ 3-dose series) 2006 Cervical Cancer Screening: P ap Smear 02/23/2008 COVID-19 Vaccine ( - 2023-2 5 season) 2024 Influenza Vaccine (#1) 2025 HIB Vaccines Aged Out No longer eligi ble based on patient's age to complete this topic HPV Vaccines Aged Out No longer eligi ble based on patient's age to complete this topic Hepatitis A Vaccines Aged Out No long er eligible based on patient's age to complete this topic IPV Vaccines Aged Out No longer eligi ble based on patient's age to complete this topic MMR Vaccines Aged Out No longer eligi ble based on patient's age to complete this topic Meningococcal ACWY Vaccine Aged Out N o longer eligible based on patient's age to complete this topic Meningococcal B Vaccine Aged Out No l onger eligible based on patient's age to complete this topic Pneumococcal Vaccine: Pediat rics (0 to 5 Years) and At-Risk Patients (6 to 49 Years) Aged Out No longer eligible b ased on patient's age to complete this topic RSV Immunization Patients Un ratna 20 months Aged Out No longer eligible b ased on patient's age to complete this topic Varicella Vaccines Aged Out No longer eligible based on patient's age to complete this topic
== END 2025-04-02 14:35 | disposition home or self-care (01) ==
LOC: HO.HMCH 13:11
PROVIDERS: PCP Internal Medicine; Visit Provider Internal Medicine
DX: Z00.00 Encounter for general adult medical examination without abnormal findings (principal); J45.909 Unspecified asthma, uncomplicated; K21.9 Gastro-esophageal reflux disease without esophagitis; F41.1 Generalized anxiety disorder; R13.10 Dysphagia, unspecified; R35.0 Frequency of micturition

== ENCOUNTER 2025-05-22 13:22 | Outpatient (REF) | payer BC, SELFPAY ==
--- NOTE | ~2025-05-22 | US_ITS ---
EXAMINATION: US PELVIS LIMITED (BLADDER) CLINICAL INFORMATION: Frequency of micturition. COMPARISON: None available. TECHNIQUE: Real-time imaging of the bladder. FINDINGS: BLADDER: Fluid-filled. Bilateral ureteral jets are demonstrated. Prevoid bladder volume is 163 mL. Postvoid bladder volume is 9 mL. US/US bladder IMPRESSION: 9 cc of residual urine in a post void image.. Electronically signed by: Philip Talley MD 05/22/2025 01:45 PM EDT
--- OUTSIDE RECORDS SUMMARY | 2025-05-22 15:38 | XMS_ITS | Clinical Summary ---
Author Organization [facility] ity Address [address] [place] [address] Care Team Providers Care Pillow Filler Name Role Phone Unavailable Primary Care Provider [...] Vaccine ( - 2023-2 5 season) 2024 Depression Screening 09/19/2024 Influenza Vaccine (#1) 2025 HIB Vaccines Aged [...] complete this topic RSV Immunization Patients Un ranta 20 months Aged Out No longer eligible b ased on patient's age to complete this topic Varicella Vaccines Aged Out No longer eligible based on patient's age to complete this topic
--- OUTSIDE RECORDS SUMMARY | 2025-05-22 15:38 | XMS_ITS | Clinical Summary ---
Author Organization [facility] Address [address] [place] [address] Phone Care Team Providers Care Senior Strategy Analyst Name Role Phone Le Leo Leroy Primary Care Provider Immunizations Immunization Administration Dates Next Due DTP 02/19/1992, 9,1987,1986,1987 Hep B, ped/adol 01/14/2003,06/10/1998,05/07/1998 Hib (PRP-T) 03/23/1990 MMR 05/07/1998,04/21/1989 OPV 02/19/1992, 9,1987,1986 Td (adult) (MBL), 2 Lf tetan us toxoid, PF, adsorbed 01/14/2003 Td (adult) (Tenivac), 5 Lf t etanus toxoid, PF, adsorbed 06/18/1999 Unknown Vaccine 05/13/2006 Social History Tobacco Use Types Packs/Day Years Used Date Smoking Tobacco: Never Assessed Comments Unknown Sex and Gender Information Value Date Recorded Sex Assigned at Not on file Legal Sex Female 4:29 PM EDT Gender Identity Not on file Sexual Orientation Not on file Plan of Treatment Health Maintenance Due Date Last Done Comments Varicella Vaccines (1 of 2 - 13+ 2-dose series) 02/23/2000 DTaP,Tdap,and Td Vaccines (6 - Tdap) 01/15/2003 01/14/2003, 06/18/1999, 02/19/1992, Additional history exists HPV Vaccines (1 - 3-dose SCDM series) 2014 Influenza Vaccines (#1) 2025 COVID-19 Vaccine ( season) 2025 HIB Vaccines Completed 03/23/1990 IPV Vaccines Completed 02/19/1992, 11/1988, 1987, Additional history exists MMR Vaccines Completed 05/07/1998, 04/21/1989 Hepatitis B Vaccines Completed 01/14/2003, 06/10/1998, 05/07/1998 Hepatitis A Vaccines Aged Out No long er eligible based on patient's age to complete this topic Men B Vaccine Aged Out No longer elig ible based on patient's age to complete this topic Meningococcal Vaccine Aged Out No maxx hayley eligible based on patient's age to complete this topic Pneumococcal Vaccine Aged Out No long er eligible based on patient's age to complete this topic Care Teams Senior Strategy Analyst Relationship Specialty Start Date End Date Leo Le [address] [place] [id number] PCP - General 04/29/17
== END 2025-05-22 13:23 | disposition home or self-care (01) ==
LOC: HO.US 13:22
PROVIDERS: PCP Internal Medicine; Visit Provider Internal Medicine
DX: R35.0 Frequency of micturition (principal)
CPT/HCPCS: 76857

== ENCOUNTER → 2025-05-22 13:27 | Outpatient (BNV) | payer BC, SELFPAY | PROVIDERS: PCP Internal Medicine; Visit Provider Radiology Diagnostic Radiology | DX: R35.0 Frequency of micturition (principal) | CPT/HCPCS: 76857 ==